=== PATIENT | female | born 1950 | race Two or more races ===

== ENCOUNTER → 2017-05-21 | Outpatient (CLI) | payer OTHER | END | disposition home or self-care (01) | LOC: MAMMO 11:02 | DX: Z12.31 Encounter for screening mammogram for malignant neoplasm of breast (principal) | CPT/HCPCS: 77063; 77067 ==

== ENCOUNTER → 2017-12-08 | Outpatient (CLI) | payer OTHER ==
--- NOTE | 2017-12-08 12:04 | CARD ---
MR#: [id number] Date of Study: 12/08/2017 Ordering Physician: AYALA FARR, Referring Physician: AYALA FARR, Tech: Lexie Allen RDCS APPROVED REPORT EXAM: Two-dimensional and M-mode echocardiogram with Doppler and color Doppler. Other Information Quality : GoodHR: 68bpm Rhythm : NSR INDICATION Murmur 2D DIMENSIONS RVDd2.5 (2.9-3.5cm)Left Atrium(2D)4.1 (1.6-4.0cm) IVSd1.0 (0.7-1.1cm)Aortic Root(2D)2.8 (2.0-3.7cm) LVDd4.3 (3.9-5.9cm)LVOT Diameter1.7 (1.8-2.4cm) PWd1.1 (0.7-1.1cm)LVDs2.6 (2.5-4.0cm) FS (%) 39.6 %SV58.1 ml LVEF(%)70.4 (>50%) M-Mode DIMENSIONS Left Atrium(MM)3.61 (2.5-4.0cm)Aortic Root3.22 (2.2-3.7cm) Aortic Valve AoV Peak Errol.176.4cm/sAoV VTI37.4cm AO Peak GR.12.4mmHgLVOT Peak Errol.92.0cm/s AO Mean GR.8mmHgAVA (VMAX)1.21cm2 MONI (VTI)1.30cm2 Mitral Valve MV E Pdnuxlvj78.8cm/sMV E Peak Gr.4mmHg MV DECEL [id number] A Mvhnhull368.7cm/s MV E Mean Gr.2mmHgE/A Ratio0.8 MV A Dalyxhpr203pu Pulmonary Valve PV Peak Ocqlvdlv942.8cm/s Tricuspid Valve TR P. Yihlhkkz327do/sRAP EVPXBVNA2osFb TR Peak Gr.50abBkJSEU30nnEe Pulmonary Vein S1 Yiteoghp03.5cm/sD2 Raaomivu91.5cm/s PVa [id number] LEFT VENTRICLE The left ventricle is normal size. There is normal left ventricular wall thickness. The Ejection Frac tion is 65-70%. The left ventricular systolic function is normal and the ejection fraction is within normal range. There is normal LV segmental wall motion. The left ventricular diastolic function and f illing is normal for age. There is small sized 0.3 cm perimembranous ventricular septal defect presen t. RIGHT VENTRICLE The right ventricle is normal size. There is normal right ventricular wall thickness. The right ventr icular systolic function is normal. ATRIA The left atrium is moderately dilated. The right atrium is borderline dilated. Interatrial septum not well visualized and a PFO can not be ruled out. AORTIC VALVE The aortic valve is normal in structure and function. The aortic valve is trileaflet. Doppler and Col or Flow revealed no significant aortic regurgitation. There is no significant aortic valvular stenosi s. MITRAL VALVE The mitral valve is normal in structure and function. There is no evidence of mitral valve prolapse. There is no mitral valve stenosis. Doppler and Color Flow revealed no mitral valve regurgitation note d. TRICUSPID VALVE The tricuspid valve is normal in structure and function. Doppler and Color Flow revealed mild to mode rate tricuspid regurgitation. There is moderate pulmonary hypertension. The PA pressure was estimated at 53 mmHg. There is no tricuspid valve prolapse or vegetation. There is no tricuspid valve stenosis . PULMONIC VALVE Not well visualized. Doppler and Color Flow revealed no pulmonic valvular regurgitation. There is mil d pulmonic stenosis by doppler criteria GREAT VESSELS The aortic root is normal in size. The IVC is normal in size and collapses >50% with inspiration. PERICARDIAL EFFUSION There is no evidence of significant pericardial effusion. Critical Notification Critical Value: No <Conclusion> There is normal left ventricular wall thickness. The Ejection Fraction is 65-70%. The left ventricular systolic function is normal and the ejection fr action is within normal range. There is small sized 0.3 cm perimembranous ventricular septal defect present. The left atrium is moderately dilated. Doppler and Color Flow revealed mild to moderate tricuspid regurgitation. There is moderate pulmonary hypertension. The PA pressure was estimated at 53 mmHg. There is mild pulmonic stenosis by doppler criteria RECOMMEND NERIS OR MRI FOR FURTHER EVALUATION OF VSD Signed by : Nicholas Michael, Electronically Approved : 12/08/2017 12:04:25
== END | disposition home or self-care (01) ==
LOC: ECHO 10:48
PROVIDERS: ATTEND Internal Medicine Cardiovascular Disease
DX: I27.20 Pulmonary hypertension, unspecified (principal); I36.1 Nonrheumatic tricuspid (valve) insufficiency; I37.0 Nonrheumatic pulmonary valve stenosis; I51.0 Cardiac septal defect, acquired
CPT/HCPCS: 93306

== ENCOUNTER → 2018-07-14 | Outpatient (CLI) | payer OTHER ==
--- NOTE | 2018-07-14 14:41 | RAD ---
DATE: 07/14/2018. EXAM: MAMMO BERNICE SCREENING BILATERAL. HISTORY: Routine mammographic screening. COMPARISON: 05/21/2017. This study was interpreted with the benefit of Computerized Aided Detection (CAD). FINDINGS: Breast Density: HETERO The breast parenchyma is heterogenously dense, which could reduce sensitivity of mammography. Breast parenchyma level C.. There are no suspicious masses, microcalcifications or architectural distortion. Scattered and coarse calcifications are benign. A nodule medially on the right is stable. The parenchymal pattern is stable. BI-RADS CATEGORY: 2 BENIGN FINDING(S). RECOMMENDED FOLLOW-UP: 12M 12 MONTH FOLLOW-UP. PQRS compliance statement: Patient information was entered into a reminder system with a target due date 07/15/2019 for the next mammogram. Mammography is a sensitive method for finding small breast cancers, but it does not detect them all and is not a substitute for careful clinical examination. A negative mammogram does not negate a clinically suspicious finding and should not result in delay in biopsying a clinically suspicious abnormality. "Our facility is accredited by the [employer] Mammography [employer]."
== END | disposition home or self-care (01) ==
LOC: MAMMO 10:23
PROVIDERS: ATTEND Family Medicine
DX: Z12.31 Encounter for screening mammogram for malignant neoplasm of breast (principal); N63.10 Unspecified lump in the right breast, unspecified quadrant; N64.89 Other specified disorders of breast
CPT/HCPCS: 77063; 77067

== ENCOUNTER → 2020-11-23 | Outpatient (CLI) | payer MEDICARE ==
--- NOTE | 2020-11-23 16:21 | RAD ---
Bilateral screening mammogram with tomography dated 11/23/2020. INDICATION: 70 years of age asymptomatic female patient presents for screening mammography. Screening TECHNIQUE: Full field craniocaudal and mediolateral oblique images of both breasts were obtained usi ng digital technique with tomosynthesis and also analyzed with computer-aided detection software. . COMPARISON: 201805/21/2017. BREAST COMPOSITION: Category B: There are scattered fibroglandular densities. FINDINGS: No suspicious mass or clustered microcalcification. No architectural distortion. The parenchymal miki sania is stable. IMPRESSION: Stable bilateral mammogram RECOMMENDATION: Annual screening mammography is recommended, unless clinically indicated sooner based on symptoms or change in physical exam. BIRADS 1: NEGATIVE This study was interpreted with the benefit of Computerized Aided Detection (CAD). Recommend follow-up routine screening mammogram in one year. Patient information is entered into the reminder system with a target due date for the next screening mammogram. Mammography is the most sensitive method for finding small breast cancers, but it does not detect the m all and is not a substitute for careful clinical examination. A negative mammogram does not negate a clinically suspicious finding and should not result in delay in biopsying a clinically suspicious a bnormality. "Our facility is accredited by the [employer] Mammography [employer]." Electronically signed by: Roger Matt MD (11/23/2020 4:19 PM) [id number]
== END ==
LOC: MAMMO 14:21
PROVIDERS: ATTEND Family Medicine
DX: Z12.31 Encounter for screening mammogram for malignant neoplasm of breast (principal)
CPT/HCPCS: 77063; 77067